=== PATIENT | male | born 1975 | race Caucasian/White ===

== ENCOUNTER 2020-11-24 18:57 | Emergency (ER) | payer SELFPAY ==
[~2020-11-24] VITALS: Ht 162.6 cm; Wt 88.5 kg
[2020-11-24 18:59] VITALS: BP 141/104
--- NOTE | 2020-11-24 18:59 | NUR ---
PT BIBA TO BED 08.
--- NOTE | 2020-11-24 19:17 | NUR ---
45 YO/M BIBA W C/O L SIDED CHEST PAIN 8/10 SHARP NON-RADIATING X65APOU SUDDEN ONSET. PATIENT REPORTS PAIN HAS BEEN IMPROVING FROM 10/10 INITIAL PAIN LEVEL. PATIENT DENIES SOB, N/V/D. S1S2 PRESENT, SKIN WARM AND DRY, +2RADIAL PULSES, CAP REFIL <3SEC, LUNG SOUNDS CLEAR THROUGHOUT, BREATHING EVEN AND UNLABORED. CONNECTED TO MONITOR W 122HR, 95 O2 SAT, 16RR, 141/104BP. ERMD AWARE OF PATIENT VS. PATIENT LAYING IN BED LOCKED IN LOWEST POSTION X1 SIDERAIL UP, HOB ELEVATED. WILL CONTINUE TO MONITOR. PMH:HTN, SEIZURES, DEPRESSION, BIPOLAR, SCHIZO ALLERGIES:FISH DRUGS: METH USE X3DAYS AGO
[2020-11-24] MEDS ORDERED: NACL 0.9% 1,000 ML IV ONE ×2 (19:20→20:50)
[2020-11-24 19:41] LABS: BASOPHILS % (AUTO) 0.4 % (0.0-2.0); EOSINOPHILS # (AUTO) 0.1 K/uL (0-0.4); EOSINOPHILS % (AUTO) 0.5 % (0.0-4.0); HEMATOCRIT 40.9 % (36-52); LYMPHOCYTES # (AUTO) 1.6 K/uL (2.0-11.5); LYMPHOCYTES % (AUTO) 14.8 % (20.5-51.1); MEAN CORPUSCULAR HEMOGLOBIN 31 pg (27-31); MEAN CORPUSCULAR HGB CONC 34 g/dL (33-37); MEAN CORPUSCULAR VOLUME 89.8 fL (80-94); MONOCYTES % (AUTO) 9.6 % (1.7-9.3); NEUTROPHILS % (AUTO) 74.7 % (42.2-75.2); PLATELET COUNT (AUTO) 333 K/uL (140-450); RED BLOOD CELL COUNT(AUTO) 4.55 MIL/uL (4.20-6.10); RED CELL DISTRIBUTION WIDTH 14.8 % (11.6-13.7); WHITE BLOOD COUNT (AUTO) 10.7 K/uL (4.8-10.8)
[2020-11-24] MEDS ORDERED: KETOROLAC 30 MG/ML VIAL IVP ONE (19:45)
[2020-11-24 19:55] LABS: ALBUMIN 3.7 g/dL (3.4-5.0); ANION GAP 17.3 (8-16); CARBON DIOXIDE 25.2 mmol/L (21-32); CREATININE 1.2 mg/dL (0.6-1.3); POTASSIUM 3.5 mmol/L (3.5-5.1); TOTAL BILIRUBIN 0.5 mg/dL (0.0-1.0)
--- NOTE | 2020-11-24 21:17 | NUR ---
PATIENT LAYING IN BED LOCKED IN LOWEST POSITION, HOB ELEVATED, X1 SIDERAIL UP. BREATHING EVEN AND UNLABORED. CONNECTED TO MONITOR W VSS. NAD NOTED, WILL CONTINUE TO MONITOR.
--- NOTE | 2020-11-24 22:49 | NUR ---
TELEPSYCH INITATED PER DR. BULL REQUEST, CONNECT ID: [id number]
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
--- NOTE | 2020-11-24 23:10 | NUR ---
Note brennan in ED - 11/25/20 at 0012 by MIRLANDE PATIENT VERBALIZED FEELING SUICIDAL, SEE SUICIDE SEVERITY SCALE ASSESSMENT. ERMD AWARE. PATIENT TO BE TELEPSYCHED.
--- NOTE | 2020-11-24 23:30 | NUR ---
PATIENT SITTING IN BED LOCKED IN LOWEST POSITION EATING SANDWHICH AND DRINKING JUICE, PATIENT REPORTS FEELING OK AT THIS TIME.
--- NOTE | 2020-11-25 02:05 | NUR ---
PATIENT LAYING IN BED W EYES CLOSED SUPINE POSITION. BED LOCKED IN LOWEST POSTION, HOB ELEVATED, X1 SIDERAIL UP. BREATHING EVEN AND UNLABORED. NAD NOTED. VSS. WILL CONTINUE TO MONITOR.
--- NOTE | 2020-11-25 02:35 | NUR ---
PATIENT SPEAKING W TELEPSYCH DOCTOR.
--- NOTE | 2020-11-25 02:55 | NUR ---
PATIENT AMBULATED TO BATHROOM W STEADY GAIT.
--- NOTE | 2020-11-25 03:15 | NUR ---
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 PER DAVID HAVE PATIENT FOLLOW UP AT [facility] [employer]. PROVIDED PATIENT W [employer]. [facility]. [employer] V[employer]CHER PROVIDED.
[2020-11-25 03:20] VITALS: BP 123/88
--- NOTE | 2020-11-25 03:20 | NUR ---
Patient discharged with v/s stable. Written and verbal after care instructions given and explained. Patient verbalized understanding. Ambulatory with steady gait. All questions addressed prior to discharge. Advised to follow up with PMD.
== END 2020-11-25 03:20 | disposition home or self-care (01) ==
LOC: MED 18:57
DX: F19.10 Other psychoactive substance abuse, uncomplicated (principal); R07.9 Chest pain, unspecified; R45.7 State of emotional shock and stress, unspecified
CPT/HCPCS: 36415; 71045; 80053; 83880; 84484; 85025; 93005; 96361; 96374; 99285; J1885; J7030; Q0092